=== PATIENT | female | born 1945 | race Caucasian/White ===

== ENCOUNTER 2018-06-30 14:30 | Inpatient (IN) | payer OTHER ==
[~2018-06-30] VITALS: Ht 152.4 cm; Wt 72.6 kg
[2018-07-26] MEDS ORDERED: DOCUSATE SODIU100 MG PO (09:57)
[2018-07-26] MEDS ORDERED: CLONAZEPAM0.5 M1 PO (09:59)
[2018-07-26] MEDS ORDERED: PERCOCET 5-3251 EACH PO (09:59)
== END 2018-07-26 14:49 | disposition home or self-care (01) | DRG 454 ==
LOC: O/R 07-25 04:58 → SURH 07-25 04:58 → SURG 07-25 11:35 → O/R 07-25 14:53 → SURH 07-25 17:31
PROVIDERS: ADMIT Orthopaedic Surgery Orthopaedic Surgery of the Spine
PROC: 0RG2071 Fusion of 2 or more Cervical Vertebral Joints with Autologous Tissue Substitute, Posterior Approach, Posterior Column, Open Approach (ICD-10-PCS; 2018-07-25)
PROC: 0RT30ZZ Resection of Cervical Vertebral Disc, Open Approach (ICD-10-PCS; 2018-07-25)
PROC: 07DS3ZZ Extraction of Vertebral Bone Marrow, Percutaneous Approach (ICD-10-PCS; 2018-07-25)
PROC: 0RG20A0 Fusion of 2 or more Cervical Vertebral Joints with Interbody Fusion Device, Anterior Approach, Anterior Column, Open Approach (ICD-10-PCS; principal; 2018-07-25 07:00)
DX: M47.12 Other spondylosis with myelopathy, cervical region (principal); M50.021 Cervical disc disorder at C4-C5 level with myelopathy